=== PATIENT | male | born 1950 | race African-American/Black ===

== ENCOUNTER 2018-07-23 14:32 | Outpatient (CLI) | payer BC ==
--- NOTE | 2018-07-23 15:12 | ULT ---
Bilateral renal ultrasound CLINICAL INDICATION: Renal Insufficiency. Hematuria. COMPARISON: None FINDINGS: Right kidney: No solid mass, or hydronephrosis. Left kidney: No solid mass, or hydronephrosis. Urinary bladder: Incompletely distended, limiting assessment. IMPRESSION: Unremarkable exam.
== END 2018-07-23 14:33 | disposition home or self-care (01) ==
LOC: BICULT 14:32
PROVIDERS: ATTEND Specialist
DX: R31.9 Hematuria, unspecified (principal)
CPT/HCPCS: 76770

== ENCOUNTER 2023-02-28 06:08 | Day surgery (SDC) | payer MEDICARE, BC ==
[2023-02-24 14:02] VITALS: BMI 24.3
[~2023-02-28 06:08] MED LIST: EPINEPHrine 0.3 MG in Ophthalmic Irrigation Solution 500 ML IRR SCH
[2023-02-28] MEDS ORDERED: Midazolam HCl 2 mg/2 ml Vial ONE (07:16)
[2023-02-28] MEDS ORDERED: fentaNYL 50 mcg/mL 1 mL Vial ONE (07:16)
[2023-02-28] MEDS ORDERED: PROPOFOL 20 ML ONE (07:16)
[2023-02-28] MEDS ORDERED: Triamcinolone 40 MG/ML VIAL ONE (07:54)
[2023-02-28] MEDS ORDERED: Lidocaine 1% PF 5 ML VIAL ONE (07:54)
[2023-02-28] MEDS ORDERED: Lidocaine 4% PF 5 ML AMP ONE (07:54)
[2023-02-28] MEDS ORDERED: CEFAZOLIN 1 GM VIAL ONE (07:54)
[2023-02-28] MEDS ORDERED: Indocyanine Green 25 MG/10 ML VIAL ONE (07:54)
[2023-02-28] MEDS ORDERED: Maxitrol 0.1% Opth Oint 3.5 GM TUBE ONE (07:54)
[2023-02-28] MEDS ORDERED: Bupivacaine 0.75% 10 ML VIAL ONE (07:54)
== END 2023-02-28 09:19 | disposition home or self-care (01) ==
LOC: SDC 06:08
PROVIDERS: ATTEND Ophthalmology Retina Specialist
PROC: 08T43ZZ Resection of Right Vitreous, Percutaneous Approach (ICD-10-PCS; principal; 2023-02-28)
PROC: 08NE3ZZ Release Right Retina, Percutaneous Approach (ICD-10-PCS; 2023-02-28)
DX: H35.371 Puckering of macula, right eye (principal)
CPT/HCPCS: 67041; J3010; J0171; J2250; J2704